=== PATIENT | female | born 1930 | race Caucasian/White ===

== ENCOUNTER 2020-11-02 18:35 | Emergency (ER) | payer MEDICARE ==
[~2020-11-02] VITALS: Ht 162.6 cm; Wt 49.9 kg
[2020-11-02 18:40] VITALS: BP 172/111
--- NOTE | 2020-11-02 18:52 | NUR ---
89/F biba with c/o chest pain since this morning. Patient states she was having her catheter changed this morning and began having chest pressure. Patient states upon arrival the chest pressure resolved and has no complaints at this time. Denies shortness of breath, nausea, vomiting, states pressure was in the middle of her chest and nonradiating, patient placed in gown on bedside chief jailer.
--- NOTE | 2020-11-02 19:20 | NUR ---
RECIEVED REPORT FROM JANNY CASTRO. TRANSFER OF CARE AT THIS TIME
--- NOTE | 2020-11-02 19:38 | NUR ---
GOMEZ LONDON AT BEDSIDE FOR MEDICAL EXAMINATION
--- NOTE | 2020-11-02 19:59 | NUR ---
LAB AT BEDSIDE
--- NOTE | 2020-11-02 20:15 | NUR ---
XRAY AT BEDSIDE
--- NOTE | 2020-11-02 20:24 | NUR ---
EKG PERFORMED AT BEDSIDE. EKG READS ATRIAL FIBRILLATION @ 99
--- NOTE | 2020-11-02 20:24 | NUR ---
EKG AT BEDSIDE
[2020-11-02 20:26] LABS: BASOPHILS # (AUTO) 0.1 K/uL (0.00-0.22); BASOPHILS % (AUTO) 1.2 % (0.0-2.0); EOSINOPHILS # (AUTO) 0.2 K/uL (0-0.4); EOSINOPHILS % (AUTO) 2.3 % (0.0-4.0); HEMATOCRIT 46.1 % (36-48); HEMOGLOBIN 15.3 g/dL (12.0-16.0); LYMPHOCYTES # (AUTO) 0.8 K/uL (2.5-16.5); LYMPHOCYTES % (AUTO) 11.8 % (20.5-51.1); MEAN CORPUSCULAR HEMOGLOBIN 31 pg (27-31); MEAN CORPUSCULAR HGB CONC 33 g/dL (33-37); MEAN CORPUSCULAR VOLUME 93.8 fL (80-94); MONOCYTES # (AUTO) 0.7 K/uL (0.8-1.0); MONOCYTES % (AUTO) 9.8 % (1.7-9.3); NEUTROPHILS # (AUTO) 5.3 K/uL (1.8-7.7); NEUTROPHILS % (AUTO) 74.9 % (42.2-75.2); PLATELET COUNT (AUTO) 112 K/uL (140-450); RED BLOOD CELL COUNT(AUTO) 4.92 MIL/uL (4.20-5.40)
[2020-11-02 20:40] LABS: ALBUMIN 3.9 g/dL (3.4-5.0); ANION GAP 10.4 (8-16); ASPARTATE AMINOTRANSFERASE 20 U/L (15-37); CARBON DIOXIDE 26.6 mmol/L (21-32); CHLORIDE 106 mmol/L (98-107); CREATININE 0.8 mg/dL (0.6-1.3); GLUCOSE 90 mg/dL (74-106); SODIUM SERUM 139 mmol/L (136-145); TOTAL BILIRUBIN 0.9 mg/dL (0.0-1.0); UREA NITROGEN, BLOOD 27 mg/dL (7-18)
--- NOTE | 2020-11-02 23:25 | NUR ---
PT. REPOSITIONED FOR COMFORT. PT. STATES RELIEF. VOICES NO COMPLAINTS AT THIS TIME
--- NOTE | 2020-11-02 23:56 | NUR ---
Dr. Love examining patient.
--- NOTE | 2020-11-03 00:43 | NUR ---
CONSENT FOR TRANSFER OBTAINED.
[2020-11-03] MEDS ORDERED: ACETAMINOPHEN EXTRA STRENGTH 500 MG TAB ONE (01:08)
[2020-11-03] MEDS ORDERED: ACETAMINOPHEN EXTRA STRENGTH 500 MG TAB PO ONE (01:15)
--- NOTE | 2020-11-03 01:20 | NUR ---
HANY (COVID) SWAB COLLECTED AND HANDED TO TEJAS FROM LAB
--- NOTE | 2020-11-03 03:10 | NUR ---
CALLED REPORT TO JANNY WLATER ([facility]). PT. WILL BE GOING TO #[id number] 3RD FLOOR NANCY
--- NOTE | 2020-11-03 03:10 | NUR ---
Patient to be transferred to [facility]. Is being transferred due to INSURANCE. Receiving facility has accepting physician and available space. ER physician has signed transfer form. Patient or responsible constitution party has agreed to transfer and signed form. Patient belongings inventoried and will be sent with patient. Copy of nursing notes, lab reports, EKG, Physicians Orders and X-rays to be sent with patient. Report called to JANNY WALTER at receiving facility. Ambulance service has been called for transfer. ETA is 0330.
--- NOTE | 2020-11-03 03:40 | NUR ---
[facility] TRANSPORT AT BEDSIDE
[2020-11-03 03:53] VITALS: BP 144/98
--- NOTE | 2020-11-03 04:01 | NUR ---
PT TAKEN BY [facility] TRANSPORT TO [facility]
== END 2020-11-03 04:01 | disposition short-term general hospital (02) ==
LOC: MED 18:35
DX: R07.9 Chest pain, unspecified (principal); Z20.822 Contact with and (suspected) exposure to COVID-19; Z88.5 Allergy status to narcotic agent
CPT/HCPCS: 36415; 71045; 80053; 84484; 85025; 93005; 99285